=== PATIENT | male | born 1980 | race Caucasian/White ===

== ENCOUNTER 2016-12-03 17:58 | Emergency (ER) | payer MEDICARE ==
[~2016-12-03 17:58] MED LIST: AMITRIPTYLINE H10 MG PO; CITALOPRAM HBR10 MG PO; DESYREL 50 MG T50 MG PO; GABAPENTIN600 MG PO; GABAPENTIN800 MG PO; HUMALOG100 UNIT/1 SC; LANTUS100 UNIT/1 SC; LISINOPRIL5 MG PO; MELOXICAM15 MG PO; PREDFORTE OP SUS5 ML OP; REQUIP3 MG PO; TRAMADOL HCL50 MG PO; XALATAN2.5 ML OS
[2017-02-08] MEDS ORDERED: LISINOPRIL5 MG PO (21:45)
[2017-02-08] MEDS ORDERED: METHADONE HCL TA5 MG PO (21:45)
[2017-02-08] MEDS ORDERED: IBUPROFEN800 MG PO (21:45)
== END 2016-12-03 20:29 | disposition home or self-care (01) ==
LOC: ER1 17:58
DX: H18.20 Unspecified corneal edema (principal); E11.9 Type 2 diabetes mellitus without complications; H54.8 Legal blindness, as defined in USA; Z88.0 Allergy status to penicillin; Z88.6 Allergy status to analgesic agent; Z79.4 Long term (current) use of insulin
CPT/HCPCS: 99283

== ENCOUNTER → 2021-11-07 | Outpatient (CLI) | payer MEDICARE, OTHER ==
[~2021-11-07] MED LIST changes: +IBUPROFEN800 MG PO; +METHADONE HCL TA5 MG PO
== END ==
LOC: KOH-I 11:02
DX: M54.2 Cervicalgia (principal); M54.9 Dorsalgia, unspecified; R05.9 Cough, unspecified; M25.512 Pain in left shoulder; M25.511 Pain in right shoulder
CPT/HCPCS: 72040; 72070; 72100; 73030